=== PATIENT | male | born 1960 ===

== ENCOUNTER 2024-11-15 07:02 | Day surgery (SDC) | payer OTHER ==
[~2024-11-15] VITALS: Ht 175.3 cm; Wt 106.8 kg
[~2024-11-15 07:02] MED LIST: SODIUM CHLORIDE 0.9% 1,000 ML ONE
[2024-11-15] MEDS ORDERED: CEVI30CA12 PO (07:26)
[2024-11-15] MEDS ORDERED: ATOR10TA PO (07:26)
[2024-11-15] MEDS ORDERED: OMEP-148 PO (07:26)
[2024-11-15] MEDS ORDERED: PRED-729 PO (07:26)
[2024-11-15] MEDS ORDERED: PILO4OS OP (07:26)
[2024-11-15] MEDS: SODIUM CHLORIDE 0.9% 1,000 ML IV ONE (07:56)
[2024-11-15] MEDS ORDERED: FentaNYL CITRATE PF 100 MCG/2 ML VIAL ONE (08:12)
[2024-11-15] MEDS ORDERED: MIDAZOLAM HCL 2 MG/2 ML VIAL ONE (08:12)
[2024-11-15 09:37] VITALS: PULSE 69; RESP 18; O2SAT 98
[2024-11-15] MEDS ORDERED: MethylPREDNISolone SOD SUCC 125 MG/2 ML VIAL ONE (10:19)
[2024-11-15] MEDS: MethylPREDNISolone SOD SUCC 125 MG/2 ML VIAL IVP ONE (10:21)
[2024-11-15] MEDS ORDERED: LIDOCAINE 2% 11 ML JELLY ONE (12:00)
[2024-11-15] MEDS ORDERED: LIDOCAINE 4% 50 ML SOLUTION ONE (12:00)
[2024-11-15] MEDS ORDERED: BENZOCAINE 20% 50 MCG/SPRAY 57 GM ONE (12:00)
== END 2024-11-15 12:30 | disposition home or self-care (01) ==
LOC: SURGERY 07:02
PROVIDERS: ATTEND Internal Medicine Critical Care Medicine
DX: R05.3 Chronic cough (principal); R04.2 Hemoptysis; J38.4 Edema of larynx; B37.0 Candidal stomatitis; G47.30 Sleep apnea, unspecified; I10 Essential (primary) hypertension; Z88.8 Allergy status to other drugs, medicaments and biological substances; Z87.891 Personal history of nicotine dependence; Z90.49 Acquired absence of other specified parts of digestive tract; Z72.9 Problem related to lifestyle, unspecified
CPT/HCPCS: 31623; 87206; 87101; 87220; 87070; 88108; 31624; 71045; 87015; J3010; J2250; J2919; J7030; Z7610